=== PATIENT | female | born 1960 | race Caucasian/White ===

== ENCOUNTER → 2023-06-25 09:36 | Outpatient (BNVA) | payer BC, SELFPAY | PROVIDERS: Family Provider Family Medicine; PCP Family Medicine; Visit Provider Emergency Medicine | DX: B34.9 Viral infection, unspecified (principal); J02.9 Acute pharyngitis, unspecified; U07.1 COVID-19 | CPT/HCPCS: 87071; 87400; 87426; 87880 ==